=== PATIENT | female | born 1995 | race Caucasian/White ===

== ENCOUNTER 2020-05-05 15:18 | Emergency (ER) | payer OTHER ==
[~2020-05-05 15:18] MED LIST: ALLEGRA ALLERGY60 MG PO; AUGMENTIN 875-1 EACH PO; DOXYCYCLINE MO100 MG PO; FLAGYL500 MG PO; ZOFRAN4 MG PO
[2020-05-05] MEDS ORDERED: AMOXICILLIN875 MG PO (18:03)
== END 2020-05-05 18:10 | disposition home or self-care (01) ==
LOC: ER1 15:18
DX: J02.9 Acute pharyngitis, unspecified (principal); R51.9 Headache, unspecified; R50.9 Fever, unspecified; F17.200 Nicotine dependence, unspecified, uncomplicated; Z88.6 Allergy status to analgesic agent
CPT/HCPCS: 0240U; 87081; 87880; 99283

== ENCOUNTER 2020-10-14 01:43 | Emergency (ER) | payer OTHER ==
[~2020-10-14 01:43] MED LIST changes: +AMOXICILLIN875 MG PO
[2020-10-14] MEDS ORDERED: PENVEE K 500 M500 MG PO (01:56)
== END 2020-10-14 01:57 | disposition home or self-care (01) ==
LOC: ER1 01:43
DX: O99.612 Diseases of the digestive system complicating pregnancy, second trimester (principal); K04.7 Periapical abscess without sinus; O99.332 Smoking (tobacco) complicating pregnancy, second trimester; F17.210 Nicotine dependence, cigarettes, uncomplicated; Z3A.22 22 weeks gestation of pregnancy
CPT/HCPCS: 99282

== ENCOUNTER 2020-12-28 02:35 | Outpatient (CLI) | payer OTHER ==
[~2020-12-28 02:35] MED LIST changes: +PENVEE K 500 M500 MG PO
[2020-12-28] MEDS ORDERED: MACROBID 100 M100 MG PO (18:06)
== END 2020-12-28 05:27 | disposition home or self-care (01) ==
LOC: GENOP 02:35
PROVIDERS: Obstetrics & Gynecology
DX: O42.913 Preterm premature rupture of membranes, unspecified as to length of time between rupture and onset of labor, third trimester (principal); Z3A.33 33 weeks gestation of pregnancy; O23.43 Unspecified infection of urinary tract in pregnancy, third trimester; O99.343 Other mental disorders complicating pregnancy, third trimester; F32.9 Major depressive disorder, single episode, unspecified; F43.10 Post-traumatic stress disorder, unspecified; O99.353 Diseases of the nervous system complicating pregnancy, third trimester; G43.909 Migraine, unspecified, not intractable, without status migrainosus
CPT/HCPCS: 80307; 81001; 83518; 96360; 96372; J0702; J3105

== ENCOUNTER 2020-12-28 15:22 | Emergency (ER) | payer OTHER ==
[2020-12-28 16:00] LABS: HEMOGLOBIN 11.6 gm/dl (12.3-15.3); RED BLOOD COUNT 3.84 M/UL (4.00-5.10); WHITE BLOOD COUNT 16.8 K/UL (4.5-11.0)
[2020-12-28 16:23] LABS: BUN/CREATININE RATIO 8 (0-10)
[2020-12-28] MEDS ORDERED: MACROBID 100 M100 MG PO (18:06)
== END 2020-12-28 18:50 | disposition home or self-care (01) ==
LOC: ER1 15:22
PROVIDERS: Emergency Medicine
DX: O99.351 Diseases of the nervous system complicating pregnancy, first trimester (principal); R56.9 Unspecified convulsions; O99.331 Smoking (tobacco) complicating pregnancy, first trimester; F17.200 Nicotine dependence, unspecified, uncomplicated; Z3A.01 Less than 8 weeks gestation of pregnancy
CPT/HCPCS: 76705; 76815; 80053; 81001; 82550; 82553; 83874; 84484; 85025; 86900; 86901; 99284

== ENCOUNTER 2021-02-13 09:21 | Inpatient (IN) | payer OTHER ==
[~2021-02-13] VITALS: Ht 162.6 cm; Wt 71.7 kg
[~2021-02-13 09:21] MED LIST changes: +MACROBID 100 M100 MG PO
[2021-02-13 10:37] LABS: HEMOGLOBIN 12.6 gm/dl (12.3-15.3); RED BLOOD COUNT 4.27 M/UL (4.00-5.10); WHITE BLOOD COUNT 13.3 K/UL (4.5-11.0)
[2021-02-13] MEDS ORDERED: PHENERGAN 12.12.5 M1 PO (10:45)
[2021-02-13] MEDS ORDERED: SERTRALINE HCL25 MG PO (10:46)
[2021-02-13] MEDS ORDERED: DOCUSATE SODIU100 MG PO (16:48)
[2021-02-13] MEDS ORDERED: SERTRALINE HCL50 MG PO (16:48)
[2021-02-13] MEDS ORDERED: IBUPROFEN600 MG PO (16:48)
[2021-02-14 06:41] LABS: HEMOGLOBIN 11.3 gm/dl (12.3-15.3)
== END 2021-02-15 13:00 | disposition home or self-care (01) | DRG 807 ==
LOC: GENOP 09:21 → OB 09:42
PROVIDERS: ADMIT Obstetrics & Gynecology
PROC: 10H07YZ Insertion of Other Device into Products of Conception, Via Natural or Artificial Opening (ICD-10-PCS; principal; 2021-02-13)
PROC: 10E0XZZ Delivery of Products of Conception, External Approach (ICD-10-PCS; 2021-02-13)
PROC: 10907ZC Drainage of Amniotic Fluid, Therapeutic from Products of Conception, Via Natural or Artificial Opening (ICD-10-PCS; 2021-02-13)
PROC: 3E033VJ Introduction of Other Hormone into Peripheral Vein, Percutaneous Approach (ICD-10-PCS; 2021-02-13)
PROC: 4A1H8CZ Monitoring of Products of Conception, Cardiac Rate, Via Natural or Artificial Opening Endoscopic (ICD-10-PCS; 2021-02-13)
PROC: 10H073Z Insertion of Monitoring Electrode into Products of Conception, Via Natural or Artificial Opening (ICD-10-PCS; 2021-02-13)
DX: O99.344 Other mental disorders complicating childbirth (principal); Z37.0 Single live birth; F32.A Depression, unspecified; F41.9 Anxiety disorder, unspecified; O99.824 Streptococcus B carrier state complicating childbirth; F43.10 Post-traumatic stress disorder, unspecified; Z20.822 Contact with and (suspected) exposure to COVID-19; O99.334 Smoking (tobacco) complicating childbirth; Z3A.39 39 weeks gestation of pregnancy
CPT/HCPCS: 36415; 51702; 80307; 81001; 82800; 85014; 85018; 85025; J2405; J2590; J7120

== ENCOUNTER 2021-02-17 13:13 | Emergency (ER) | payer OTHER ==
[~2021-02-17 13:13] MED LIST changes: +DOCUSATE SODIU100 MG PO; +IBUPROFEN600 MG PO; +PHENERGAN 12.12.5 M1 PO; +SERTRALINE HCL25 MG PO; +SERTRALINE HCL50 MG PO
== END 2021-02-17 16:10 | disposition left against medical advice (07) ==
LOC: ER1 13:13
DX: Z53.21 Procedure and treatment not carried out due to patient leaving prior to being seen by health care provider (principal)

== ENCOUNTER 2021-11-23 19:33 | Emergency (ER) | payer OTHER ==
[2021-11-23 20:33] LABS: RED BLOOD COUNT 4.83 M/UL (4.00-5.10)
[2021-11-23 20:53] LABS: BUN/CREATININE RATIO 15 (0-10)
[2021-11-23] MEDS ORDERED: OMNICEF 300 MG300 MG PO (22:32)
== END 2021-11-23 22:40 | disposition home or self-care (01) ==
LOC: ER1 19:33
PROVIDERS: Physician Assistant Medical
DX: G40.909 Epilepsy, unspecified, not intractable, without status epilepticus (principal); N39.0 Urinary tract infection, site not specified
CPT/HCPCS: 71046; 80053; 80307; 81001; 82550; 82553; 83605; 84484; 84703; 85025; 86850; 86900; 86901; 93005; 99285